=== PATIENT | female | born 1970 | race Caucasian/White ===

== ENCOUNTER 2021-09-27 18:20 | Observation (INO) ==
[2021-09-28] MEDS ORDERED: Ondansetron 4 MG/2 ML VIAL IVP ONE (02:21)
[2021-09-28] MEDS ORDERED: *HR* HYDROmorphone (PF) 1 MG/ML SYRINGE IVP ONE (02:33)
[2021-09-28] MEDS ORDERED: Ondansetron 4 MG/2 ML VIAL IVP STA (02:33)
[2021-09-28 02:54] LABS: Basophils % 0.6 %; Eosinophils # 0.1 K/mcL (0.0-0.6); Eosinophils % 2.7 %; Hemoglobin 11.7 g/dL (11.5-15.4); Immature Granulocytes % 0.4 % (0-4); Lymphocytes # 1.4 K/mcL (0.6-4.6); Lymphocytes % 27.8 %; Mean Corpuscular HGB Conc 32.5 g/dL (31.6-35.5); Mean Corpuscular Hemoglobin 29.4 pg (28.0-33.3); Mean Corpuscular Volume 90.5 fL (83.0-100.0); Mean Platelet Volume 12.1 fL (9.4-12.4); Monocytes # 0.4 K/mcL (0.0-1.3); Monocytes % 7.6 %; Neutrophils # 3.1 K/mcL (1.6-8.9); Platelet Count 170 K/mcL (140-400); Red Blood Count 3.98 M/mcL (3.82-4.97); Red Cell Distribution Width 12.7 % (11.5-14.5); Segmented Neutrophils % 60.9 %; White Blood Count 5.2 K/mcL (4.3-11.1)
[2021-09-28 02:58] LABS: Alanine Aminotransferase 320 Units/L (7-52); Albumin/Globulin Ratio 1.6 (1.1-2.2); Alkaline Phosphatase 622 Units/L (34-104); Aspartate Amino Transferase 232 Units/L (13-39); BUN/Creatinine Ratio 27 (6-26); Bilirubin,Direct 0.6 mg/dL (0.0-0.2); Bilirubin,Indirect 0.4 mg/dL (0.0-1.0); Blood Urea Nitrogen 16 mg/dL (6-20); Calcium 11.7 mg/dL (8.6-10.3); Carbon Dioxide 25 mEq/L (23-29); Chloride 107 mEq/L (98-107); Globulin 2.5 g/dL (2.4-3.5); Glucose 114 mg/dL (70-105); Lipase 69 Units/L (11-82); Osmolality,Calculated 286 (280-300); Potassium 3.2 mEq/L (3.5-5.1); Sodium 137 mEq/L (136-145); Total Protein 6.5 g/dL (6.4-8.9); eGFR For African Americans > 60 (> 60); eGFR For Non-African Americans > 60 (> 60)
[2021-09-28 03:06] LABS: INR 1.1; Prothrombin Time 11.9 Seconds (9.4-12.1)
[2021-09-28 03:09] LABS: Activated Partial Thrombo Time 33.6 Seconds (26.0-36.0)
[2021-09-28] MEDS ORDERED: Ondansetron 4 MG/2 ML VIAL IVP PRN ×2 (06:11→10:39)
[2021-09-28] MEDS ORDERED: Naloxone 0.4 MG/ML INJ IVP PRN (06:11)
[2021-09-28] MEDS ORDERED: *HR* HYDROmorphone (PF) 1 MG/ML SYRINGE IVP PRN (06:14)
[2021-09-28] MEDS ORDERED: 0.9 % Sodium Chloride 1,000 ML IVC SCH ×2 (06:15→10:38)
[2021-09-28 07:24] LABS: Chol/HDL Ratio 2.4 (0-4.9); Cholesterol 115 mg/dL (< 200); Ethanol < 10 mg/dL (Less than 10); HDL Cholesterol 48 mg/dL (40-59); LDL Cholesterol,Calculated 55 mg/dL (< 100); Magnesium 1.8 mg/dL (1.6-2.6); Triglycerides 58 mg/dL (< 150)
[2021-09-28 08:20] LABS: Hepatitis B Surface Antigen Nonreactive (Nonreactive)
[2021-09-28 08:50] LABS: Hepatitis B Core IgM Nonreactive (Nonreactive)
[2021-09-28 08:51] LABS: Hepatitis A Antibody IgM Nonreactive (Nonreactive)
[2021-09-28 09:12] LABS: Bilirubin,Urine Negative (Negative); Blood,Urine Moderate (Negative); Clarity,Urine Slightly Cloudy (Clear); Color,Urine Yellow (Yellow); Glucose,Urine (UA) Normal (Normal); Ketones,Urine Negative (Negative); Leukocyte Esterase,Urine Large (Negative); Nitrite,Urine Negative (Negative); Protein,Urine 30 mg/dL (Neg-Trace)
[2021-09-28 09:15] LABS: Squamous Epithelial Cell,Urine Few per hpf (None-Few)
[2021-09-28 09:16] LABS: WBC,Urine 50-100 per hpf (0-3)
[2021-09-28 09:17] LABS: Amorphous Sediment,Urine Moderate per hpf (None-Few)
[2021-09-28 10:30] LABS: Amphetamine Screen,Urine Positive ng/mL (Cutoff=1000); Barbiturate Screen,Urine Negative ng/mL (Cutoff=200); Benzodiazepines Screen,Urine Negative ng/mL (Cutoff=200); Cannabinoid Screen,Urine Negative ng/mL (Cutoff = 50); Cocaine Screen,Urine Negative ng/mL (Cutoff= 300); Opiate Screen,Urine Positive ng/mL (Cutoff=300); Phencyclidine Screen,Urine Negative ng/mL (Cutoff=25)
[2021-09-28 10:39] VITALS: BP 102/74; PULSE 71; TEMP 97.9; O2SAT 98
[2021-09-28] MEDS ORDERED: Nicotine 21 MG PATCH.TD24 TD SCH (12:30)
[2021-09-29 02:41] LABS: Hepatitis C Virus Antibody Reactive (Nonreactive)
== END 2021-09-28 15:21 | disposition left against medical advice (07) ==
LOC: EMEROOARM 18:20 → 4WAOSI 18:20 → SUATTDRO 09-28 09:49 → 4WAOSI 09-28 10:20
PROVIDERS: ADMIT Family Medicine; ATTEND Internal Medicine